=== PATIENT | male | born 1950 | race Caucasian/White ===

== ENCOUNTER 2018-12-07 08:08 | Outpatient (CLI) | payer OTHER | END 2018-12-07 08:13 | disposition home or self-care (01) | LOC: SONOGRAMA 08:08 | DX: D37.030 Neoplasm of uncertain behavior of the parotid salivary glands (principal) ==

== ENCOUNTER 2021-10-15 09:33 | Outpatient (CLI) | payer OTHER | END 2021-10-15 09:36 | disposition home or self-care (01) | LOC: SONOGRAMA 09:33 | PROVIDERS: ATTEND Pathology Anatomic Pathology & Clinical Pathology | DX: D37.030 Neoplasm of uncertain behavior of the parotid salivary glands (principal) ==